=== PATIENT | female | born 1950 | race Caucasian/White ===

== ENCOUNTER 2020-06-06 23:07 | Emergency (ER) | payer BC ==
[~2020-06-06] VITALS: Ht 170.2 cm; Wt 94.3 kg
[~2020-06-06 23:07] MED LIST: ADULT LOW DOSE81 MG PO; AMLODIPINE BESY10 MG PO; CALCIUM PO; CYANOCOBAL-LEV1 EACH PO; D3 + K2 DOTS 11 EACH PO; FENOFIBRATE200 MG PO; LAMICTAL XR300 MG PO; LOTENSIN40 MG PO; METFORMIN HCL1000 M1 PO; NIASPAN ER 101000 M1 PO; NORCO 5-325 TA1 EACH PO; OMEGA-31000 M1 PO; PROZAC PO; SENIOR MULTIVITAMIN; TOPROL XL50 MG PO; VITAMIN D1000 UNI1 PO; XANAX XR1 MG PO
[2020-06-07 00:23] LABS: ABSOLUTE EOSINOPHILS 0.2 thou/uL (0.0-0.7); ABSOLUTE LYMPHOCYTES 1.4 thou/uL (0.8-5.3); ABSOLUTE MONOCYTES 0.3 thou/uL (0.0-1.2); BASOPHILS 0.8 %; EOSINOPHILS 5.1 %; HEMATOCRIT 34.8 % (37.0-47.0); HEMOGLOBIN 11.6 gm/dL (12.0-15.0); MCH 30.9 pg (26.0-34.0); MCHC 33.4 g/dL (28.0-37.0); MCV 92.4 fL (80.0-100.0); MONOCYTES 7.7 %; MPV 9.2 fl. (7.2-11.1); NUCLEATED RBCS 0 /100WBC; PLATELET COUNT* 171 thou/uL (150-400); POLYS 50.4 %; RBC 3.76 mil/uL (4.20-5.00); WBC 3.9 thou/uL (4.0-11.0)
[2020-06-07 00:34] LABS: INR 1.1; PROTIME 11.4 Seconds (9.20-11.50)
[2020-06-07 00:35] LABS: CALCIUM 8.6 mg/dL (8.5-10.1); CREATININE 2.1 mg/dL (0.6-1.3); POTASSIUM 3.7 mmol/L (3.5-5.1)
[2020-06-07 00:46] LABS: MAGNESIUM 2.1 mg/dL (1.8-2.4)
[2020-06-07] MEDS ORDERED: LIPITOR40 MG PO (01:19)
[2020-06-07] MEDS ORDERED: PLAVIX 75 MG TA75 MG PO (01:19)
[2020-06-07] MEDS ORDERED: CULTURELLE1 EACH PO (01:20)
[2020-06-07] MEDS ORDERED: FLUOXETINE HCL40 MG PO (01:21)
[2020-06-07] MEDS ORDERED: NEURONTIN300 MG PO (01:22)
[2020-06-07] MEDS ORDERED: COZAAR 25 MG TA25 M2 PO (01:22)
[2020-06-07] MEDS ORDERED: PROTONIX40 M2 PO (01:23)
[2020-06-07] MEDS ORDERED: MIRALAX119 GM PO (01:23)
[2020-06-07] MEDS ORDERED: COLACE100 MG PO (01:24)
[2020-06-07] MEDS ORDERED: FLEXERIL PO (01:24)
[2020-06-07] MEDS ORDERED: PERCOCET 5-3251 EACH PO (01:25)
[2020-06-07] MEDS ORDERED: HYDROCODON-ACE1 EAC8 PO (02:19)
[2020-06-07 02:40] VITALS: BP 138/60
--- NOTE | 2020-06-07 17:29 | EKG ---
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[facility] : 1950 Requested By: Arti Loredo Order Number: [id number] MD: Valdemar Madrigal Measurements Intervals [place] Rate: 74 P: -11 VA: 210 QRS: -69 QRSD: 173 T: 39 QT: 467 QTc: 519 Interpretive Statements Sinus rhythm Multiform ventricular premature complexes Right bundle branch block Compared to ECG 07/26/2014 07:59:26 Ventricular premature complex(es) now present Sinus arrhythmia no longer present Right bundle branch block with left axis deviation persists Electronically Signed On 06-07-2020 17:28:49 ACCESS RN by Valdemar Madrigal [email or web address] <ELECTRONICALLY SIGNED> By: Valdemar Madrigal MD, FACC 06/07/20 1728 2338 2338 Valdemar Madrigal MD, FAC /EPI
== END 2020-06-07 02:40 | disposition home or self-care (01) ==
LOC: M.ERS 23:07
PROVIDERS: Emergency Medicine
DX: M25.512 Pain in left shoulder (principal); F17.210 Nicotine dependence, cigarettes, uncomplicated; E11.9 Type 2 diabetes mellitus without complications; E78.00 Pure hypercholesterolemia, unspecified; Z98.890 Other specified postprocedural states; Z88.6 Allergy status to analgesic agent; Z96.641 Presence of right artificial hip joint